=== PATIENT | male | born 1985 | race Caucasian/White ===

== ENCOUNTER 2016-12-25 10:43 | Emergency (ER) | payer SELFPAY ==
[~2016-12-25 10:43] MED LIST: Z.0.NO CURRENT MEDS
--- NOTE | 2016-12-25 17:20 | RADRPT ---
EXAM DATE/TIME: 12/25/2016 11:37 [place] COMPARISON: No previous studies available for comparison. INDICATIONS : Right heel injury. Kicked object. MEDICAL HISTORY : None. SURGICAL HISTORY : None. ENCOUNTER: Initial ACUITY: 1 day PAIN SCORE: 7/10 LOCATION: Right lateral FINDINGS: Two view examination of the right heel demonstrates the trabecula to be intact with no evidence of fr acture. There is a normal calcaneal angle. Moderate plantar calcaneal spur. There is questionable f racture of the spur. The soft tissues are of normal thickness. CONCLUSION: 1. Moderate size plantar calcaneal spur with questionable fracture of the spur. 2. Calcaneus is otherwise intact Nate Dickey MD on December 25, 2016 at 11:41 Board Certified Radiologist. This report was verified electronically.
--- NOTE | 2016-12-26 08:26 | EP ---
cc: GIOVANNI COOL M.D. CHIEF COMPLAINT: Right heel pain. HISTORY OF PRESENT ILLNESS: The patient states he was loading scrap into a trailer and kicked a piece of metal with the bottom of his foot. He did have shoes on. The incident occurred yesterday. He awoke with increased pain and pain on bearing weight. PAST MEDICAL HISTORY: None. PAST SURGICAL HISTORY: 1. Left inguinal hernia repair. 2. Unspecified eye surgery. 3. Unspecified wrist surgery. SOCIAL HISTORY: Occasional alcohol. No tobacco. FAMILY HISTORY: Unknown. CURRENT MEDICATIONS: None. ALLERGIES: NO KNOWN DRUG ALLERGIES. REVIEW OF SYSTEMS: Negative except for the above in the history of present illness. PHYSICAL EXAMINATION: CARDIOVASCULAR: Regular rate and rhythm. RESPIRATORY: Clear to auscultation bilaterally. ABDOMEN: Nontender, nondistended and positive bowel sounds. EXTREMITIES: Warm to touch. Pulses palpable. No edema noted. Examination of the right heel reveals no ecchymosis, erythema or edema, tenderness to the plantar surface of the heel. No bony deformities. Good flexion and extension of the ankle. Good dorsalis pedis pulse. LABORATORY STUDIES: No labs obtained. IMAGING STUDIES: X-ray of the right heel reveals a moderate sized plantar calcaneal spur with questionable fracture of the spur. The calcaneus is intact. ASSESSMENT: Right heel contusion. PLAN: 1. Encourage Motrin or Tylenol for pain. 2. Rest. 3. Ice. 4. Elevation. 5. Follow up with primary care physician. 6. Encouraged a good shoe insert with heel cup support and arch support. 7. Return to the emergency room with any onset of new symptoms. Giovanni Cool M.D. BIPIN/MOI /11:52 AM /8:21 AM
== END 2016-12-25 12:18 | disposition home or self-care (01) ==
LOC: PHED 11:20
DX: S90.31XA Contusion of right foot, initial encounter (principal); W22.8XXA Striking against or struck by other objects, initial encounter
CPT/HCPCS: 73650; 99283